=== PATIENT | female | born 1965 | race Caucasian/White ===

== ENCOUNTER 2021-08-30 21:04 | Emergency (ER) | payer OTHER, SELFPAY ==
[2021-08-30 21:10] VITALS: BP 148/65; PULSE 88; RESP 20; TEMP 36.8; O2SAT 99
--- NOTE | 2021-08-30 22:36 | ED.SKABFB ---
HPI - Skin/Abscess/Foreign Bdy General Chief complaint: Skin/Abscess/Foreign Body Stated complaint: axillary abcess Time Seen by Provider: 08/30/21 22:35 Source: patient Mode of arrival: ambulatory Limitations: no limitations History of Present Illness HPI narrative: This is a 55-year-old female that presents to the emergency department for right axilla pain and swelling noted over the last 4 days. Reports she was stung by a wasp in the area. She started to have redness and swelling over the weekend. She was seen at urgent care and started on Bactrim on Saturday. She has been taking this as prescribed without relief. She now has noted some drainage to the area. Patient has history of type 1 diabetes. Her blood sugars have been under control. Denies fevers. Related Data Allergies Allergy/AdvReac Type Severity Reaction Status Date / Time No Known Allergies Allergy Unverified 07/20/21 15:57 Review of Systems Review of Systems: CONSTITUTIONAL: Denies fever SKIN: Reports abscess All systems reviewed & are unremarkable except as noted in HPI and below PMFSH Past Medical History Medical History (Updated 08/31/21 @ 00:00 by Lyndsey Valadez PA-C) History of diabetes mellitus History of hyperlipidemia History of hypertension Social History Social History (Updated 08/30/21 @ 22:38 by Lyndsey Valadez PA-C) Substance use: never Exam Narrative: GENERAL: Well-appearing, well-nourished, and in no acute distress. HEAD: Normocephalic, atraumatic. EYES: EOMI. CHEST: No respiratory distress HEART: Regular rate EXTREMITIES: Normal range of motion. Right axilla with 1.5cm area of erythema and edema with central fluctuance. Mild to moderate surrounding cellulitis. No lymphangitic streaking SKIN: Warm, dry, no rash. NEURO: No focal deficits. Alert and oriented x3. PSYCH: Normal mood and affect Course Vital Signs Vital signs: Vital Signs Temperature 98.3 F 08/30/21 21:10 Pulse Rate 88 08/30/21 21:10 Respiratory Rate 20 08/30/21 21:10 Blood Pressure 148/65 H 08/30/21 21:10 Pulse Oximetry 99 08/30/21 21:10 Oxygen Delivery Room Air 08/30/21 21:10 Temperature 98.3 F 08/30/21 21:10 Pulse Rate 88 07/13/22 21:10 Respiratory Rate 20 08/30/21 21:10 Blood Pressure 148/65 H 08/30/21 21:10 Pulse Oximetry 99 08/30/21 21:10 Oxygen Delivery Room Air 08/30/21 21:10 Procedures Abscess I/D upper extremity: Date of Incision: 08/30/21 Time of Incision: 23:58 Side (if applicable): right Local Anesthetic: lidocaine 1% and with epi Amount of anesthesia used (mL): 3 Technique: incised with #11 blade Irrigation: Yes Packing used?: none I&D Results: Pus and Blood MDM - Skin/Abscess/Foreign Bdy MDM Narrative Medical decision making narrative: Patient presents to the emergency department for an abscess noted to the right axilla. She is afebrile and nontoxic-appearing. Small abscess noted in the right axilla. Successful I&D. Will be continued on her oral antibiotics. I did send a culture of the wound. 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 She was given warnings to return to the ER Critical Care Time Critical Care Time Critical Care Time: No Discharge Plan Discharge Clinical Impression: Abscess of skin or subcutaneous tissue Qualifiers: Site of cutaneous abscess: extremity Site of cutaneous abscess of extremity: axilla Laterality: right Qualified Code(s): L02.411 - Cutaneous abscess of right axilla Patient Disposition: Home, Self-Care Condition: Stable Instructions: Antibiotic Form, Abscess (ED) Additional Instructions: Return if symptoms worsen or concerns: any increase in redness, swelling, pain or fever over 101 Take antibiotics as directed. Clean wound with mild soapy water. Apply antibiotic ointment and clean dressing at least three times daily. Warm compresses 3 times a day for 30 minutes each Fo
[2021-08-31 00:25] VITALS: BP 125/67; PULSE 88; RESP 16; O2SAT 99
== END 2021-08-31 00:26 | disposition home or self-care (01) ==
PROVIDERS: Emergency Provider Emergency Medicine; PCP Family Medicine Sports Medicine
DX: L02.411 Cutaneous abscess of right axilla (principal); E11.9 Type 2 diabetes mellitus without complications; E78.5 Hyperlipidemia, unspecified; I10 Essential (primary) hypertension
CPT/HCPCS: 10060; 87070; 87147; 87181; 87186; 87205; 99282